=== PATIENT | male | born 1935 | race Caucasian/White ===

== ENCOUNTER → 2024-10-23 11:30 | Outpatient (REF) | payer OTHER, SELFPAY | LOC: HWRAD 11:30 | PROVIDERS: ATTENDING PHYSICIAN Family Medicine | DX: R10.9 Unspecified abdominal pain (principal) | CPT/HCPCS: 76700 ==

== ENCOUNTER → 2024-11-27 10:54 | Outpatient (REF) | payer OTHER, SELFPAY | LOC: RAD 10:54 | PROVIDERS: ATTENDING PHYSICIAN Student in an Organized Health Care Education/Training Program; FAMILY PHYSICIAN Family Medicine | DX: R13.19 Other dysphagia (principal) | CPT/HCPCS: 74246 ==

== ENCOUNTER → 2024-12-25 14:10 | Outpatient (REF) | payer OTHER, SELFPAY | LOC: HWRAD 14:10 | PROVIDERS: ATTENDING PHYSICIAN Family Medicine | DX: R06.02 Shortness of breath (principal) | CPT/HCPCS: 71046 ==

== ENCOUNTER 2025-01-02 19:05 | Inpatient (IN) | payer OTHER, SELFPAY ==
[2025-01-02] VITALS (10 sets, daily range): BP systolic 135–166; BP diastolic 67–78; PULSE 79–98; BMI 32.6; BMI 31.6
[2025-01-02 13:07] LABS: Hematocrit 28.0 % (39.0-52.0); Hemoglobin 8.7 g/dL (13.0-18.0); Mean Corp Hgb Conc. 31.1 g/dL (33.0-37.0); Mean Corpuscular Volume 85.1 fL (80.0-94.0); Platelet Count 167 10^3/uL (130-400); Red Cell Dist. Width 13.9 % (11.5-14.5)
[2025-01-02 13:12] LABS: ALT (SGPT) < 10 U/L (0-50); AST (SGOT) 12 U/L (17-59); Albumin 4.6 g/dl (3.5-5.0); Alkaline Phosphatase 76 U/L (38-126); Blood Urea Nitrogen 31 mg/dl (9-20); Calcium 8.5 mg/dl (8.4-10.2); Carbon Dioxide 24 mmol/L (22-30); Chloride 107 mmol/L (98-107); Glucose 175 mg/dl (70-99); Potassium 4.6 mmol/L (3.5-5.1); Sodium 138 mmol/L (135-145); Total Protein 7.3 g/dl (6.3-8.2); eGFR 33.51
[2025-01-02 13:23] LABS: Troponin I < 0.012 ng/ml
[2025-01-02 13:27] LABS: Nucleated Red Blood Cells % 0 % (-)
--- NOTE | 2025-01-02 14:31 | ED.GENMED ---
History of Present Illness
General
Chief Complaint: Breathing Problem
Time Seen by Provider: 01/02/25 13:53
History of Present Illness
History of Present Illness:
81-year-old male with history of hyperlipidemia, PE on Eliquis, and hypertension presenting to the emergency department for shortness of breath. Patient arrives with his son who notes for the past 3 weeks patient has been feeling very short of
breath. He has been following with his primary care doctor, who noted a drop in his hemoglobin. Patient is on Eliquis for prior PE, however was stopped 2 weeks ago secondary to his symptoms. Patient notes dyspnea with exertion. Denies cough or
fever. Does note some lower extremity swelling. Denies any associated chest pain. Denies any abdominal pain. Denies any changes in his stool. His primary care doctor did an upper GI series in November because patient did not want an endoscopy,
negative for any significant process. Patient denies additional acute medical complaints
Past History
Past History
ED Past Medical History: COPD, HTN, NIDDM and Other (Pulmonary embolism, DVT)
ED Past Surgical History: Appendectomy and Orthopedic (knee surgery)
Social History
Tobacco: Non-smoker
Alcohol: None
Drug: None
Personal:
Living: with family
Employment: Retired
Phy Exam
Physical Exam
Physical Exam:
General: Well-appearing, no clinical signs of dehydration, nontoxic and in no acute distress
HEENT: protecting airway
Neck: appears supple
CV: Normal heart rate, regular rhythm
Resp: No accessory muscle use, no increased work of breathing, lungs clear to auscultation bilaterally
Abd: Soft and non-distended, no tenderness to palpation
Extremities: No deformities, mild symmetric swelling bilaterally, no erythema
Neuro: alert, no focal neurologic deficit
: Heme positive, brown stool
Rectal: deferred
Psych: Normal affect
Skin: Intact
Scores
Heart Failure Risk
Heart Failure Risk Score: Not Applicable
Course
Orders/Labs/Results
Orders:
Orders
01/02/25 12:32
Electrocardiogram (*1) Urgent
Reason for Study: Shortness of Breath
EKG- Treatment ONCE
01/02/25 12:47
Complete Blood Count/With Diff Urgent
Comprehensive Metabolic Panel Urgent
Ferritin Urgent
Comment: ADD ON
Iron Urgent
Pro-BNP [NT-proBNP] Urgent
Total Iron Binding Urgent
Troponin I Urgent
01/02/25 14:19
CT Abd/pel W Iv And Oral Contr Urgent
Comment:
Reason For Exam: SOB, anemia, heme pos stool
Iohexol [Omnipaque] See Protocol PO NOW STA
01/02/25 15:27
0.9% Sodium Chloride 1000 ml [Nss] 1,000 ml IV BOLUS
01/02/25 18:29
Add On- LAB Routine
Tests Added?: Iron, Ferritin, TIBC, Iron % saturation
01/02/25 18:30
Admit/Transfer Patient As Directed
Co-Sign Provider:
Level of Care: Inpatient admission
Assign to:: Medical/Surgical
Physician / Group: argenis
Diagnosis: symptomatic anemia
Reason for Hospitalization: symptomatic anemia
Expected length of stay greater than two midnights?: Yes
ELOS- Estimated Length of Stay in days: 3
I certify the patient meets the requirements for IP care: Yes
01/02/25 18:31
Code Status As Directed
Resuscitation Status: Full Code
PRN Pain Medication Management As Directed
May give lesser potent ordered pain med per pt: Yes
preference::
Protocol:: Medication orders for pain may be administered in a
manner that supports deferring to patient preference
when the pt is:
- Requesting an ordered lesser potent pain medication.
Least to most potent pain medications are defined
as: acetaminophen < NSAID < tramadol < opioids
(morphine, oxycodone, hydromorphone).
- Requesting a lesser dose of the same medication IF
ORDERED.
- Requesting a less intrusive route of administration
if both routes are prescribed by the provider (PO <
IV).
01/02/25 18:46
Furosemide [Lasix] 40 mg IV NOW STA
01/02/25 18:50
Furosemide [Lasix] 40 mg IV NOW STA
01/02/25 18:59
Transfer Patient As Directed
Transfer to: Telemetry
Reason for Telemetry: Pulmonary Edema
Date to Stop Telemetry: 01/05/25
Time to Stop Telemetry: 11:00
01/02/25 19:02
CXR2 [CR Chest - 2 Views ] Urgent
Comment:
Reason For Exam: shortness of breath
01/05/25 11:00
DC Protocol for Telemetry ONCE
Abnormal Lab Results
01/02/25
12:47
RBC 3.29 L 10^6/uL
(4.70-6.10)
Hgb 8.7 L g/dL
(13.0-18.0)
Hct 28.0 L %
(39.0-52.0)
MCH 26.4 L pg
(27.0-31.0)
MCHC 31.1 L g/dL
(33.0-37.0)
Abs Immat Gran (auto) 0.4 H 10^3/uL
(0-0.05)
Absolute Monos (auto) 0.8 H 10^3/uL
(0.1-0.6)
Immature Gran % 6.8 H %
(0-0.5)
Monocytes % 13.3 H %
(1.7-9.3)
BUN 31 H mg/dl
(9-20)
Creatinine 1.9 H mg/dL
(0.7-1.3)
Glucose 175 H mg/dl
(70-99)
Iron 48 L ug/dl
(49-181)
% Saturation 11 L %
(20-50)
Ferritin 4.5 L ng/ml
(17.9-464.0)
AST 12 L U/L
(17-59)
01/02/25 12:47
01/02/25 12:47
Vital Signs
Initial and Last Documented VS:
Initial Vital Signs
Temp Pulse Resp BP Pulse Ox
97.6 F 94 20 135/69 98
01/02/25 12:29 01/02/25 12:29 01/02/25 12:29 01/02/25 12:29 01/02/25 12:29
Last Documented Vital Signs
Temp Pulse Resp BP Pulse Ox
97.6 F 82 18 156/70 98
01/02/25 12:29 01/02/25 20:04 01/02/25 20:00 01/02/25 20:04 01/02/25 20:00
MDM/Problems Addressed
MDM/Problems Addressed:
89-year-old male with history of PE on Eliquis, hypertension, hyperlipidemia presenting for worsening dyspnea for the past 3 weeks. Vital signs on arrival are normal
On exam, patient is resting comfortably, no acute distress. No increased work of breathing with unremarkable cardiac and pulmonary exam. Minimal to lower extremities. Given patient's symptoms, differential considerations include CHF, however no
significant signs of volume overload. Pneumonia is a consideration, however no cough or fever, lower suspicion for infection. ACS is a consideration, however no chest pain, nonischemic EKG. PE is a consideration, however anticoagulated on
Eliquis, discontinued 2 weeks ago with symptoms starting preceding the discontinuation. Low suspicion for PE at this time. Patient had laboratory analysis obtained prior to my assessed, with a hemoglobin of 8.7. Last hemoglobin on file is from
August 2022 at which time was 13.1. Primary care doctor sent patient in for also concern of anemia. At this time suspect symptomatic anemia. Patient is heme positive on rectal examination feels with concern for GI bleed. Lower suspicion for
arterial source given duration of symptoms, no barbara hematochezia. Per PCP, recommending CT abdomen pelvis with IV and oral contrast, which is what patient's GI doctor had recommended. Will obtain. Labs otherwise thus far unremarkable.
Ultimately feel patient warrants admission for symptomatic anemia, GI bleed.
17:50 -CT shows questionable short segment of bowel wall thickening in the distal colon with differentials including focal colitis, peristalsis or neoplasm. Neoplasm is certainly consideration. At this time feel patient warrants admission for
anemia, GI bleed, likely need for GI consultation
*Pulse Oximetry
SaO2: 98
Oxygen Mode of Delivery: Room air
Patient hypoxic: no
*EKG
Interpreted by ED Provider?: Yes
EKG Intrepretation Date: 01/02/25
EKG Intrepretation Time: 14:36
Interpretation: normal
Heart Rate: 86
Rate: normal
Rhythm: sinus
[place]: normal axis
Interval: first degree heart block
QRS Pattern: normal QRS
Ischemia: no ischemia
*Critical Care Note
Total Time (30-74mins, 75-104mins- exclusive of procedures): Not Applicable
ED Attending Note
-
Portions of this chart may have been created with voice recognition software.� Occasional wrong word or��sound alike� substitutions may have occurred due to the inherent limitations of voice recognition software.
Discharge Plan
Departure
Patient Disposition: Admit
Date of Disposition: 01/02/25
Time of Disposition: 17:55
Presentation/result/management discussed w/ accepting MD/DO: Hospitalist
Patient with high blood pressure during this ER visit?: No
Condition: Fair
Discharge Problem:
Anemia, Dyspnea on exertion, GI bleed
Interventions
Interventions:
*Risk Screen - Suicide Last Done: 01/02/25 12:29
*General Assessment Last Done: 01/02/25 12:29
ED- Cardiac Assessment Last Done: 01/02/25 14:14
ED- Pulmonary Assessment Last Done: 01/02/25 14:14
[2025-01-02] MEDS: OMNIPAQUE 50 ML PO (14:36)
[2025-01-02] MEDS: NSS 1000 IV (15:44)
--- NOTE | 2025-01-02 15:55 | PHANOTE ---
01/02/2025, pt.'s Eliquis is currently on hold per pt. and pt.'s son and has been for roughly 5 days.
--- NOTE | 2025-01-02 18:06 | HPS.HSE ---
Family Physician
-
Family Physician: Margarette Guzman
Chief Complaint
-
sob
History of Present Illness
81-year-old male with history of hyperlipidemia, PE on Eliquis, and hypertension presenting to the emergency department for shortness of breath for three weeks. sob worse with exertion. denied abdominal pain,n,v,d. denied black or bloody stools. he
was noted drop in hgb two weeks ago. Eliquis was stopped then. denied chest pain.denied NATH, dizzy or syncope. denied fever, chills, congestion, cough. denied dysuria or hematuria. denied LE edema.
Rectal shows brown stool, but heme positive. CT shows questionable short segment of bowel wall thickening involving the distal descending colon. Differential includes focal colitis, peristalsis or neoplasm.
admitting for further management.
Medical History
Past Medical History
Past Medical History: Reports Other
Additional Past Medical History:
hypothyroidism
BPH
HLD
type 2 Dm
CAD
HTn
atrial fib
COPD
dementia
CKD
PE
Past Surgical History: Reports Other
Additional Past Surgical History:
knee replacement
appendectomy
Social History
Tobacco: Former Smoker
Alcohol: Occasional
Drug: None
Living: With Family
Family History
Family History: Not pertinent
Allergies / Home Medications
Allergies reflects when Allergies were last updated in [facility].
Home Medications with original date entered in [facility]
Allergy/Medication List:
Allergies
Allergy/AdvReac Type Severity Reaction Status Date / Time
No Known Allergies Allergy Verified 01/02/25 12:29
Home Medications
apixaban 5 mg tablet (Eliquis) 5 mg PO BID 01/02/25
furosemide 20 mg tablet 20 mg PO DAILY 01/02/25
levothyroxine 137 mcg tablet 137 mcg PO DAILY 01/02/25
losartan 50 mg tablet 50 mg PO DAILY 01/02/25
metformin 500 mg tablet 500 mg PO BIDWMEAL 01/02/25
pantoprazole 40 mg tablet,delayed release 40 mg PO DAILY 01/02/25
vitamin B complex 1 tab PO DAILY 01/02/25
Review of Systems
-
Constitutional: Reports No Symptoms
EENT: Reports No Symptoms
Respiratory: Reports Trouble Breathing
Cardiac: Reports No Symptoms
Abdomen/GI: Reports No Symptoms
: Reports No Symptoms
Musculoskeletal: Reports No Symptoms
Skin: Reports No Symptoms
Neurological: Reports No Symptoms
Endocrine: Reports No Symptoms
Hematologic/Lymphatic: Reports No Symptoms
Psych: Reports No Symptoms
Physical Exam
Vital Signs
Vital Signs
Temp Pulse Resp BP Pulse Ox
97.6 F 70 18 158/78 99
01/02/25 12:29 01/02/25 15:42 01/02/25 15:42 01/02/25 15:42 01/02/25 15:42
Physical Exam
General: Well Developed, Well Nourished and No Apparent Distress
HEENT: NormoCephalic, Moist mucous membranes and Atraumatic
Respiratory: Clear
Cardiac: S1/S2 and Regular Rhythm; No Murmur or Rub
GI: Soft, Non Tender, Non Distended and Normal Bowel Sounds; No Organomegaly
Rectal: Deferred by Provider
Musculoskeletal: No Clubbing, No Cyanosis and No Edema
Skin: No Rash
Neuro: Nonfocal/grossly intact
Psych: Calm
Laboratory Results
-
01/02/25 12:47
01/02/25 12:47
Laboratory Results
Total Bilirubin 1.3 mg/dl (0.2-1.3) 01/02/25 12:47
AST 12 U/L (17-59) L 01/02/25 12:47
ALT < 10 U/L (0-50) 01/02/25 12:47
Alkaline Phosphatase 76 U/L (38-126) 01/02/25 12:47
Troponin I < 0.012 ng/ml 01/02/25 12:47
Data Reviewed
-
CT Scan: Report Reviewed by me
Lab Data: Labs Reviewed by me
Impression/Plan
-
#symptomatic anemia secondary GI bleeding
-hgb 8.7. rectal with brown stool with heme positive
-CT with the impression of Questionable short segment of bowel wall thickening involving the distal descending colon. Differential includes focal colitis, peristalsis or neoplasm. Recommend direct visualization.Prostatomegaly with chronic outlet
obstruction changes.
-IV PPI
-clear liquid diet
-GI consulted
#acute kidney injury secondary to GI bleed
-cr 1.9
-ctm
#hxt of PE
-hold eliquis Lasix
#essential HTN
-hold losartan,and metformin
#concern for CHF exacerbation
-one dose lasix in ER
-strict I&O, daily weight
#DM type 2
-sliding scale
-CHO diet
DVT prophylaxis
-scd
#CODE status
-full code
--- NOTE | 2025-01-02 18:27 | W.PN.UPDATE ---
Update Note
Progress Note Update
This is an addendum to H&P written by TALENT AGENT Alba Figueroa
I saw and examined the patient.
The TALENT AGENT's note was reviewed and I agree with the note.
Comment:
Mr. Alex Johnson is a 89 yo man with hx COPD, HTN, NIDDM, DVT/PE presenting to the ER with shortness of breath. Patient noted to have a drop in Hg to 8.7 as outpatient. History obtained from son who stated Hg value has been declining over past
3-4 weeks. Son has also noticed that patient's legs have become more swollen and he is increasingly short of breath with exertion. No chest pain.
Triage VS: T 97.6, P 94, RR 20, BP 135/69, SpO2 98%
On exam patient is conversant, in no acute distress. JVP seen. B/l 2+ pitting edema.
LABS: WBC 6.2, HG 8.7, PLT 167, Na 138, K+ 4.6, CO2 24, Cr 1.9, Glucose 175
CT A/P
IMPRESSION:
1. Questionable short segment of bowel wall thickening involving the distal descending colon. Differential includes focal colitis, peristalsis or neoplasm. Recommend direct visualization.
2. Prostatomegaly with chronic outlet obstruction changes
Shortness of Breath
HFpEF Acute Exacerbation
-with report of increasing LE swelling, shortness of breath will order one dose IV Lasix and monitor response
-with new elevated creatine at 1.9, I will consult Renal for further management of diuresis (patient also received IV contrast today)
-TTE ordered
-strict I/O, daily weights
-BNP can be misleading given body habitus
HEATHER
-hold SUBSTITUTE CROSSING GUARD Losartan, Metformin
-Lasix 40mg IV x 1 as above and monitor response
-Nephrology consulted
New Anemia
Abnormal finding on CT A/P
-drop in Hg over past several weeks per son, do not have prior values
-heme positive on ER exam, questionable neoplasm on CT A/P. Per son, patient never had a colonoscopy
-clear liquid diet
-GI consulted for colonoscopy
Hypothyroidism - SUBSTITUTE CROSSING GUARD Synthroid
NIDDM
-hold SUBSTITUTE CROSSING GUARD Metformin
DVT PPx SCD
FULL CODE
Remainder of plan per TALENT AGENT note
76 minutes spent on patient care
[2025-01-02 19:00] LABS: Iron 48 ug/dl (49-181)
[2025-01-02 19:10] LABS: Total Iron Binding Capacity 427 ug/dl (261-462)
[2025-01-02 20:00] LABS: Ferritin 4.5 ng/ml (17.9-464.0)
[2025-01-02] MEDS: LASIX 40 MG IV (20:04)
--- NOTE | 2025-01-02 21:00 | PTCARENOTE ---
Patient arrived from ED, via stretcher, with son accompanying at the bedside. OOB x 1 with rolling walker from stretcher to bed. Standing weight obtained. VSS. NSR with first degree AV block on telemetry. Patient with frequent urination status post
administration IV Lasix. Skin check completed--no open wounds noted on assessment. Sacrum is red, yet blanching. Bilateral feet, +2 pitting edema. Bilateral leg +1 nonpitting edema. Bed and chair alarm on. Patient oriented to room. Patient provided
with a urinal for voids. Bed in lowest position. Call ruiz and personal belongings within reach.
[2025-01-02 22:15] LABS: Glucose - Point of Care 179 mg/dl (70-99)
--- NOTE | 2025-01-03 01:35 | PTCARENOTE ---
Patient refusing to use the urinal for accurate output. Patient continues to violate bed alarm. This RN and support services tech continue to reiterate the importance of utilizing the call ruiz.
[2025-01-03 03:28] VITALS: BP 143/71
[2025-01-03] MEDS: SYNTHROID 137 MCG PO (05:27)
[2025-01-03 06:00] VITALS: BMI 31.6
[2025-01-03 07:00] VITALS: BP 184/76
[2025-01-03 07:24] LABS: Hematocrit 25.6 % (39.0-52.0); Hemoglobin 8.0 g/dL (13.0-18.0); Mean Corp Hgb Conc. 31.3 g/dL (33.0-37.0); Mean Corpuscular Volume 84.2 fL (80.0-94.0); Platelet Count 149 10^3/uL (130-400); Red Cell Dist. Width 14.0 % (11.5-14.5)
[2025-01-03] MEDS: PROTONIX IV 40 MG IV (07:47)
[2025-01-03] MEDS: NSS (PRESERVATIVE FREE) 10 ML IV (07:49)
[2025-01-03] MEDS: NOVOLOG FLEXPEN-LOW RESISTANCE 1 UNITS SC (07:51)
[2025-01-03 07:52] LABS: Glucose - Point of Care 154 mg/dl (70-99)
[2025-01-03 08:00] LABS: Blood Urea Nitrogen 28 mg/dl (9-20); Calcium 8.3 mg/dl (8.4-10.2); Carbon Dioxide 26 mmol/L (22-30); Chloride 105 mmol/L (98-107); Estimated Creatinine Clearance 34 ml/min; Glucose 140 mg/dl (70-99); HDL Cholesterol 37 mg/dl; LDL Cholesterol, Calculated 75 mg/dl; Magnesium 1.9 mg/dl (1.6-2.3); Potassium 4.3 mmol/L (3.5-5.1); Sodium 138 mmol/L (135-145); Very Low Density Lipoprotein 20 mg/dl (0-30); eGFR 35.76
--- NOTE | 2025-01-03 08:00 | PTCARENOTE ---
Pt's BP 184/76. rechecked 168/74 in AM. DEnied any dizziness. Hospitalist notified. Care ongoing.
[2025-01-03 08:17] LABS: COVID-19 Antigen Negative (Negative)
[2025-01-03 08:50] LABS: Glycohemoglobin (HgbA1c) 7.4 % (4.0-5.6)
[2025-01-03 09:20] LABS: TSH 0.40 uIU/ml (0.47-4.68)
--- NOTE | 2025-01-03 09:27 | W.PN.HOSP.TC ---
Today's Communication/Plan
-
see PN
unable to reach daughter over the phone
Assessment / Plan
Assessment / Plan
89yo M with PMHx of DM, GERD, HTN, Afib on Eliquis, hypothyroidism sent by his doctor due to abnormal labs andSOB, found anemia and CT abd with distal descending colon wall thickening. Also with concern for Cr elevation found prostatomegally
No Hx pf pulmonary embolism as per patient
A/P:
#Dyspnea without hypoxa 2/2 symptomatic anemia, unclear if acute
#KAREN
#Ascending colon thickening
Serial CBC
GI consult
serial CBC
PPI BID
Holding anticoagulation
ProBNP low, no congestion on cchest XR - no concern for CHF
Echo as scheduled on admission
#HEATHER vs CKD
unclear Cr trend
Nephro consult while holding ARB
#BPH
Finasteride/Tamsulosin
Outpatient Urology
watch for retention with serial bladder scans
#DM type 2 with nephropathy
Accuchecks, Insulin SS, check HgbA1c, DM diet when able to eat
Stop metformin
#COPD, stable
#HLD
#Hypothyroidism
#Essential HTN
check TSH
cont home meds
#Paroxysmal Afib
well controlled
tele showing sinus rhythm
Hold Eliquis while awaiting anemia w/u
DVT ppx SCDs
Full code
I ahve spent at least 55min reviewing chart, test results, communication with consultants and providing direct patient care
Anticipated Discharge: 24 - 48 hours
Subjective/Interval History
-
Date of Service: January 03, 2025
Objective Data
-
Labs:
Laboratory Results
01/03/25 01/03/25
06:40 07:10
WBC 5.0
Hgb 8.0 L
Hct 25.6 L
Plt Count 149
PT Pending
INR Pending
APTT Pending
Sodium 138
Potassium 4.3
Chloride 105
Carbon Dioxide 26
BUN 28 H
Creatinine 1.8 H
Glucose 140 H
Calcium 8.3 L
Vital Signs:
Vital Signs
Temp Pulse Resp BP Pulse Ox
97.9 F 86 18 143/71 97
01/03/25 03:28 01/03/25 03:28 01/03/25 03:28 01/03/25 03:28 01/03/25 03:28
I&O
01/02/25 01/03/25 01/04/25
06:59 06:59 06:59
Intake Total 240 / 240
Output Total 50 / 50
Balance 190 / 190
Review of Systems
-
History Source: Patient
All other systems: Reviewed and negative
Physical Exam
-
General: No Apparent Distress
HEENT: Normocephalic
Respiratory: Clear to Auscultation
Cardiac: Regular Rhythm
GI: Soft, Nontender and Nondistended
Musculoskeletal: No Clubbing, No Cyanosis and No Edema
Psych: Calm
[2025-01-03 10:10] LABS: LDH 150 U/L (120-246)
[2025-01-03 10:15] LABS: Reticulocyte Count 1.8 % (0.4-2.8)
[2025-01-03] MEDS: FLOMAX 0.4 MG PO (10:29)
[2025-01-03 10:56] LABS: INR 1.01; PT 13.8 Sec (11.4-14.6)
[2025-01-03 10:57] LABS: APTT 29.2 Sec (23.4-35.0)
[2025-01-03 11:00] VITALS: BP 125/60
--- NOTE | 2025-01-03 11:41 | CON.GI ---
Addendum entered and electronically signed by Sharon Block DO 01/03/25 15:46:
patient was discharged before I could see him. Iwona Gonzáles to bill for consult
Original Note:
Consultation
-
Date/Time Consultation Requested: 01/02/251999
Date/Time Consultation Performed: 01/02/25 1150
Requesting Provider: STACIE Faustin
Performing Provider: STACIE Gama, Sharon Block DO
Reason for Consultation: anemia
Medical History
Chief Complaint / HPI
Chief Complaint: shortness of breath
History of Present Illness:
Pt is a 89 y.o male with past medical history of HTN, HLD, DM II, hypothyroidism, CKD stage III, COPD, paroxysmal A Fib (recently stopped Eliquis), gait apraxia, renal stones, PE, enlarged prostate, vascular dementia, previous dysphagia, and
worsening iron deficiency anemia. He was seen in GI office in July with dysphagia. Per notes hx EGD several years ago (about 15-20 yrs ago believes this was at [facility]) where he reportedly had his esophagus dilated/stretched and found to
have a hiatal hernia. No report of this this. However, fortunately during that visit he admits complete resolution of his symptoms since being prescribed Pantoprazole. Pt and family opted not to proceed with EGD but had UGI/SBFT with small HH
minimal GERD no esophagitis, small diverticulum post GE jucntion and atrophic gastriis, gastric diverticulm. He also had PCP visit for abdominal pain with stable labs and US with GI follow up and improved pain and noted KAREN. In review of chart pt
hbg was 13.8 in June, 11.5 on October then 9.9 in November and now down to 8 with iron deficient indices. He is also noted with symptotic anemia with shortness of breath and weakness with heme + brown stool on ER exam.
In review with patient he states prior dysphagia remains improved on PPI. He otherwise admits to some constipation but denies GERD, nausea, vomiting, current abdominal pain, diarrhea, or seeing blood/black in stools. ? hx colonoscopy 8 years
ago. Unsure of results.
01/02/25 CT a/p IV and oral
1. Questionable short segment of bowel wall thickening involving the distal descending colon. Differential includes focal colitis, peristalsis or neoplasm. Recommend direct visualization.
2. Prostatomegaly with chronic outlet obstruction changes.
.
Past Medical History
Past Medical History: Arrhythmias (PAF with recent Eliquis stopped ), CAD, COPD, HTN, NIDDM, Renal Failure (CKD) and Other (renal stones, enlarged prostate , PE, dysphagia, vascular dementia )
Past Surgical History: Appendectomy and Other (knee replacement )
Social History
Tobacco: Former Smoker
Alcohol: Occasional
Drug: None
Living: Alone
Employment: Retired
Family History
Family History: Other (Denies any known FDR with esophageal, gastric/stomach, colon or other known GI malignancy. He does note an aunt that had Grossman's esophagus.)
Allergies / Home Medications
Allergy/AdvReac Type Severity Reaction Status Date / Time
No Known Allergies Allergy Verified 01/02/25 12:29
�Medication �Instructions �Recorded
apixaban 5 mg tablet (Eliquis) 5 mg PO BID Blood Clot 01/02/25
Prevention/Tx
furosemide 20 mg tablet 20 mg PO DAILY Fluid 01/02/25
Retention/Swelling
levothyroxine 137 mcg tablet 137 mcg PO DAILY Thyroid 01/02/25
losartan 50 mg tablet 50 mg PO DAILY Blood Pressure 01/02/25
metformin 500 mg tablet 500 mg PO BIDWMEAL Diabetes 01/02/25
pantoprazole 40 mg tablet,delayed 40 mg PO DAILY Gastrointestinal 01/02/25
release Issue
vitamin B complex 1 tab PO DAILY Supplement 01/02/25
Review of Systems
-
History Source: Patient and Family
Constitutional: Reports Weight Gain
EENT: Reports No Symptoms
Respiratory: Reports No Symptoms and Trouble Breathing
Cardiac: Reports No Symptoms
Abdomen/GI: Reports Abdominal Pain (recent abdominal pain now denies ), Constipated and Bloody Stools (heme + brown per ER)
: Reports No Symptoms
Musculoskeletal: Reports No Symptoms
Skin: Reports No Symptoms
Neurological: Reports Weakness
Endocrine: Reports No Symptoms
Hematologic/Lymphatic: Reports No Symptoms
Vital Signs
Temp Pulse Resp BP Pulse Ox
97.9 F 70 20 184/76 97
01/03/25 07:00 01/03/25 07:00 01/03/25 07:00 01/03/25 07:00 01/03/25 07:00
Physical Exam
Exam
General: Other (elderly male no acute distress )
HEENT: Normocephalic and Anicteric
Respiratory: Clear
Cardiac: Regular Rhythm
GI: Soft, Non Tender and Non Distended
Musculoskeletal: No Clubbing and No Cyanosis
Neuro: Awake, Alert and AO x 3
Psych: Calm
Results
WBC 5.0 10^3/uL (4.8-10.8) 01/03/25 06:40
Hgb 8.0 g/dL (13.0-18.0) L 01/03/25 06:40
Hct 25.6 % (39.0-52.0) L 01/03/25 06:40
MCV 84.2 fL (80.0-94.0) 01/03/25 06:40
Plt Count 149 10^3/uL (130-400) 01/03/25 06:40
Absolute Neuts (auto) 3.1 10^3/uL (1.4-6.5) 01/02/25 12:47
PT 13.8 Sec (11.4-14.6) 01/03/25 09:50
INR 1.01 01/03/25 09:50
APTT 29.2 Sec (23.4-35.0) 01/03/25 09:50
Sodium 138 mmol/L (135-145) 01/03/25 06:40
Potassium 4.3 mmol/L (3.5-5.1) 01/03/25 06:40
Chloride 105 mmol/L (98-107) 01/03/25 06:40
Carbon Dioxide 26 mmol/L (22-30) 01/03/25 06:40
BUN 28 mg/dl (9-20) H 01/03/25 06:40
Creatinine 1.8 mg/dL (0.7-1.3) H 01/03/25 06:40
Calcium 8.3 mg/dl (8.4-10.2) L 01/03/25 06:40
Total Bilirubin 1.3 mg/dl (0.2-1.3) 01/02/25 12:47
AST 12 U/L (17-59) L 01/02/25 12:47
ALT < 10 U/L (0-50) 01/02/25 12:47
Alkaline Phosphatase 76 U/L (38-126) 01/02/25 12:47
Diagnostic Image Results:
11/27/24 UGI/SBFT
Very small reducible sliding hiatal hernia with minimal reflux, though no radiographic evidence of esophagitis. Small 2-4 mm diverticulum at the posterior margin of the gastroesophageal junction.
Findings suggest atrophic gastritis.
Gastric fundal diverticulum.
01/02/25 CT a/p IV and oral
1. Questionable short segment of bowel wall thickening involving the distal descending colon. Differential includes focal colitis, peristalsis or neoplasm. Recommend direct visualization.
2. Prostatomegaly with chronic outlet obstruction changes.
Prior GI Procedures:
EGD: ? 15-20 years ago [facility] with dilation
Colonoscopy: ? 8 years ago per family no results reviewed
Assessment / Plan
-
Pt is a 89 y.o male with past medical history of HTN, HLD, DM II, hypothyroidism, CKD stage III, COPD, paroxysmal A Fib (recently stopped Eliquis), gait apraxia, renal stones, PE, enlarged prostate, vascular dementia, previous dysphagia, and
worsening iron deficiency anemia. He was seen in GI office in July with dysphagia. Per notes hx EGD several years ago (about 15-20 yrs ago believes this was at [facility]) where he reportedly had his esophagus dilated/stretched and found to
have a hiatal hernia. No report of this this. However, fortunately during that visit he admits complete resolution of his symptoms since being prescribed Pantoprazole. Pt and family opted not to proceed with EGD but had UGI/SBFT with small HH
minimal GERD no esophagitis, small diverticulum post GE junction and atrophic gastritis, gastric diverticulum. He also had PCP visit for abdominal pain with stable labs and US with GI follow up and improved pain and noted KAREN. In review of chart
pt hbg was 13.8 in June, 11.5 on October then 9.9 in November and now down to 8 with iron deficient indices. He is also noted with symptotic anemia with shortness of breath and weakness with heme + brown stool on ER exam. ? colonoscopy 8 years ago.
01/02/25 CT a/p IV and oral
1. Questionable short segment of bowel wall thickening involving the distal descending colon. Differential includes focal colitis, peristalsis or neoplasm. Recommend direct visualization.
2. Prostatomegaly with chronic outlet obstruction changes.
-symptomatic KAREN
-heme + brown stool
-recent dysphagia
-CT with colitis vs mass
-recent abdominal pain and admits to some constipation
-hx esophageal dilation
other med problems:
HTN, HLD, DM II, hypothyroidism, CKD stage III, COPD, paroxysmal A Fib (recently stopped Eliquis), gait apraxia, renal stones, PE, enlarged prostate, vascular dementia
PLAN:
etiology of KAREN related to underlying GI source with heme + stools, abnormal CT vs upper lesion with recent dysphagia vs other-- (ectasia, PUD, mass vs other)
discussed at length with pt and family for EGD/colon vs conservative measure with heme follow up and iron infusions-- pt and family aware without procedure cancers, lesions etc can be missed
I also reviewed risk/benefit of EGD/colon- bleeding infection, perforation, med decomp- resp issue, afib etc.
family will further discuss and will have Dr. block call Son Alex with final decision
trend hbg tranfuse <7
cont IV iron
clear diet til family decision
per family Eliquis stopped 5 days ago-- reviewed with family with hold may slow down bleeding but can lead to CVA, clots etc with hx afib and prior PE
-
-
Thank you for consultation and allowing me to participate in the patient's care. Please call the network operations technician GI physician during the after hours with any questions or concerns.
[2025-01-03 11:47] LABS: Glucose - Point of Care 234 mg/dl (70-99)
[2025-01-03] MEDS: NOVOLOG FLEXPEN-LOW RESISTANCE 2 UNITS SC (11:53)
[2025-01-03 12:13] LABS: Folate 9.2 ng/ml (2.76-20); Vitamin B12 687 pg/ml (239-931)
[2025-01-03] MEDS: FERRLECIT 110 MG IV (13:35)
--- NOTE | 2025-01-03 13:52 | W.DCSUMMARY ---
Discharge Summary
Discharge Data
Date of Admission: 01/02/25
Date of Discharge: 01/03/25
-
Pending Results: No
Hospital Course
89yo M with PMHx of DM, GERD, HTN, Afib on Eliquis, hypothyroidism sent by his doctor due to abnormal labs andSOB, found anemia and CT abd with distal descending colon wall thickening. Also with concern for Cr elevation found prostatomegally with
chronic bladder outlet obstruction. FOBT+ stool in ED. As per son - patient had his eliquis stopped by PCP 5 days ago due to progressive anemia, worsened from 13 to 8.5g/dL in 1 month. No overt dark stool seen. CT abdomen showed Questionable short
segment of bowel wall thickening involving the distal descending colon. Differential includes focal colitis, peristalsis or neoplasm. Patient has no abdominal pain so neoplasm will be most liekly. After conversation with GI - patient and family
declined Colonoscopy, since patient said that he will not do anything about it, while he is feeling well. Family at this point in agreement with patient and want to honor his wishes. Explained in details that this can be progressive CA and if not
treated- patient can rapidly decline with poor outcome. Anyway - they requested discharge. Createnine elevation is new to them and will also need additional follow up due to significantly enlarged prostate on CT. Family verbalized understanding and
agreement with plan. they prefer to follow up as outpatient and requesting d/c. Instructed to check Hgb and Cr in 2 days with PCP. Defer restarting of Eliquis to PCP as it was held by him. Family informed on risk of stroke and willing to accept it
at this time. Repeat TFT in 2-3 weeks as Synthroid decreased
I have spent at least 55min reviewing chart, test results, communication with consultants and providing direct patient care
Patient was managed for:
#Dyspnea without hypoxa 2/2 symptomatic anemia, unclear if acute
#KAREN
#Ascending colon thickening
#HEATHER vs CKD
#BPH
#DM type 2 with nephropathy
#COPD, stable
#HLD
#Hypothyroidism
#Essential HTN
#Paroxysmal Afib
Discharge Plan
-
Patient Disposition: Home (Routine Discharge)
Discharge Diagnosis/Procedures: anemia
Diet: Low Cholesterol
Activity: As tolerated
Blood Work: CBC and BMP in 2 days upon discharge with family doctor, repeat thyroid test in 3 weeks
Referrals:
Margarette Guzman DO [Family Provider, Family Practice]
Prosper Gallegos Jr., MD [Active, Urology] - in two to four weeks
Prescriptions:
New
tamsulosin 0.4 mg Capsule
0.4 mg PO DAILY Qty: 30 0RF
levothyroxine 125 mcg Tablet
125 mcg PO DAILY @ 0600 Qty: 30 0RF
finasteride 5 mg Tablet
5 mg PO DAILY Qty: 30 0RF
ferrous sulfate 325 mg (65 mg iron) tablet
325 mg PO DAILY Qty: 30 0RF
bisacodyl 5 mg tablet,delayed release (DR/EC)
15 mg PO ONCE PRN (Reason: Constipation) Qty: 30 0RF
pantoprazole 40 mg tablet,delayed release (DR/EC)
40 mg PO BID Qty: 60 0RF
Continued
vitamin B complex Tablet
1 tab PO DAILY
furosemide 20 mg Tablet
20 mg PO DAILY
Held
Eliquis 5 mg Tablet
5 mg PO BID
Hold Instructions: until restarted by your doctor
Rx Instructions:
on hold as of roughly 5 days ago per pt. and pt.'s son.
Discontinued
losartan 50 mg Tablet
50 mg PO DAILY
metformin 500 mg Tablet
500 mg PO BIDWMEAL
levothyroxine 137 mcg Tablet
137 mcg PO DAILY
pantoprazole 40 mg Tablet,Delayed Release (Dr/Ec)
40 mg PO DAILY
Discharge Orders:
Discharge Patient (As Directed); Ordered 01/03/25
Ordered By: Ludwig Alexis
Discharge Date and Time
Print Language: ARABIC
--- NOTE | 2025-01-03 14:44 | CM ---
Met with pt and son at bedside. Lives alone independently in 1 story home. Son and daughter provide support in the home with manager business systems and setting up pill box.No hx of SNF/HC. Has walker with wheels, grab bar in shower and powder room. Son
expressed interest in having home health aid in the home. Resources provided.
PCP: Kwame Lyman
Rx: [facility]/ Jose nath
Plan: Home with home health aid information
== END 2025-01-03 16:45 | disposition home or self-care (01) | DRG 812 ==
LOC: 4 WEST ACU 19:05
PROVIDERS: Emergency Medicine; Registered Nurse; ADMITTING PHYSICIAN Student in an Organized Health Care Education/Training Program; ATTENDING PHYSICIAN Internal Medicine; CONSULT PHYSICIAN Internal Medicine; EMERGENCY PHYSICIAN Student in an Organized Health Care Education/Training Program; FAMILY PHYSICIAN Family Medicine
DX: D50.0 Iron deficiency anemia secondary to blood loss (chronic) (principal); I13.0 Hypertensive heart and chronic kidney disease with heart failure and stage 1 through stage 4 chronic kidney disease, or unspecified chronic kidney disease; N17.9 Acute kidney failure, unspecified; I50.30 Unspecified diastolic (congestive) heart failure; R19.5 Other fecal abnormalities; N18.30 Chronic kidney disease, stage 3 unspecified; E03.9 Hypothyroidism, unspecified; E11.22 Type 2 diabetes mellitus with diabetic chronic kidney disease; K44.9 Diaphragmatic hernia without obstruction or gangrene; N40.0 Benign prostatic hyperplasia without lower urinary tract symptoms; J44.9 Chronic obstructive pulmonary disease, unspecified; E78.5 Hyperlipidemia, unspecified; I48.0 Paroxysmal atrial fibrillation; Z11.52 Encounter for screening for COVID-19; Z79.899 Other long term (current) drug therapy; Z79.01 Long term (current) use of anticoagulants; Z79.84 Long term (current) use of oral hypoglycemic drugs; Z86.711 Personal history of pulmonary embolism; Z87.891 Personal history of nicotine dependence
CPT/HCPCS: 71046; 74177; 80048; 80053; 80061; 82607; 82728; 82746; 82962; 83036; 83540; 83550; 83615; 83735; 83880; 84443; 84484; 85025; 85027; 85045; 85610; 85730; 87502; 87811; 93005; 93306; 93970; 96360; 96361; 99285; J2916; Q9967